=== PATIENT | female | born 1955 | race Asian ===

== ENCOUNTER 2017-08-17 10:46 | Outpatient (CLI) | payer OTHER | END 2017-08-17 19:36 | disposition home or self-care (01) | LOC: SMI 10:46 | DX: M25.461 Effusion, right knee (principal); M71.21 Synovial cyst of popliteal space [Baker], right knee; M22.41 Chondromalacia patellae, right knee; R60.9 Edema, unspecified | CPT/HCPCS: 73721 ==

== ENCOUNTER 2019-03-07 08:15 | Outpatient (CLI) | payer OTHER | END 2019-03-07 20:53 | disposition home or self-care (01) | LOC: SUS 08:15 | PROVIDERS: ATTEND Family Medicine | DX: R16.1 Splenomegaly, not elsewhere classified (principal) | CPT/HCPCS: 76700-TC ==